=== PATIENT | male | born 1995 | race Caucasian/White ===

== ENCOUNTER 2020-12-18 09:37 | Emergency (ER) | payer OTHER ==
[~2020-12-18] VITALS: Ht 175.3 cm; Wt 73.0 kg
[2020-12-18 09:39] VITALS: BP 118/71
== END 2020-12-18 10:40 | disposition left against medical advice (07) ==
LOC: ER 09:37
DX: R07.89 Other chest pain (principal)
CPT/HCPCS: 71046; 99283